=== PATIENT | female | born 1990 | race African-American/Black ===

== ENCOUNTER 2020-02-27 14:55 | Emergency (ER) | payer MEDICAID ==
[~2020-02-27] VITALS: Ht 162.6 cm; Wt 65.3 kg
--- NOTE | 2020-02-27 15:05 | NUR ---
Pt was triaged and placed back in ER waiting room as there are no ER beds available at this time.
== END 2020-02-27 15:50 | disposition left against medical advice (07) ==
LOC: ER 14:55
DX: Z75.3 Unavailability and inaccessibility of health-care facilities (principal)

== ENCOUNTER 2021-01-31 22:22 | Emergency (ER) | payer MEDICAID, OTHER ==
--- NOTE | 2021-01-31 23:05 | NUR ---
PATIENT WAS CALLED TO BE TRIAGED BUT WAS NOT PRESENT IN THE WAITING ROOM OR OUTSIDER OF ER.
--- NOTE | 2021-01-31 23:20 | NUR ---
PATIENT WAS TO BE TRIAGED BUT WAS NOT PRESENT IN THE WAITING ROOM OR OUTSIDE OF ER.
--- NOTE | 2021-01-31 23:30 | NUR ---
PATIENT WAS NOT TRIAGED OR SEEN BY [facility].
== END 2021-01-31 23:31 | disposition left against medical advice (07) ==
LOC: ER 22:24
DX: Z53.21 Procedure and treatment not carried out due to patient leaving prior to being seen by health care provider (principal)